=== PATIENT | female | born 1980 | race Caucasian/White ===

== ENCOUNTER 2023-08-29 18:00 | Outpatient (REF) | payer OTHER, SELFPAY ==
--- NOTE | ~2023-08-29 | MR_ITS ---
EXAMINATION: MR LUMBAR SPINE WITHOUT CONTRAST CLINICAL INFORMATION: Low back pain. COMPARISON: None available. TECHNIQUE: MRI of the lumbar spine was obtained using routine sequences without contrast. FINDINGS: Mild retrolisthesis at L4-L5 and L5-S1. No abnormal bone marrow signal. The vertebral body heights are preserved. Disc desiccation at L4-L5 and L5-S1 without significant disc height loss. Multilevel endplate osteophytosis. The visualized spinal cord is normal in caliber. No abnormal cord signal. The conus medullaris terminates at L1-L2. T12-L1: No significant spinal canal or neural foraminal narrowing. L1-L2: No significant spinal canal or neural foraminal narrowing. L2-L3: No significant spinal canal or neural foraminal narrowing. L3-L4: No significant spinal canal or neural foraminal narrowing. L4-L5: Tiny disc bulge with superimposed annular fissure. No significant spinal canal or neural foraminal narrowing. L5-S1: Central disc protrusion with superimposed annular fissure. No significant spinal canal or neural foraminal narrowing. The paravertebral soft tissues are unremarkable. MR/MR lumbar spine wo con IMPRESSION: Mild degenerative disc disease at L4-L5 and L5-S1 with superimposed annular fissures at these levels. No significant spinal canal or neural foraminal narrowing.
== END 2023-08-29 18:01 | disposition home or self-care (01) ==
LOC: HO.MRI 18:00
PROVIDERS: PCP Nurse Practitioner; Visit Provider Family Medicine Sports Medicine
DX: M54.50 Low back pain, unspecified (principal)
CPT/HCPCS: 72148

== ENCOUNTER 2023-11-28 13:38 | Outpatient (AMB) | payer OTHER, SELFPAY ==
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
[2023-11-28 14:07] VITALS: BP 118/74; PULSE 78; RESP 16; O2SAT 96; BMI 32.0
== END 2023-11-28 15:19 | disposition home or self-care (01) ==
PROVIDERS: PCP Nurse Practitioner; Visit Provider Anesthesiology
DX: M51.36 Other intervertebral disc degeneration, lumbar region (principal); G89.4 Chronic pain syndrome; M79.18 Myalgia, other site
CPT/HCPCS: 99203

== ENCOUNTER → 2023-11-28 13:38 | Outpatient (BNVA) | payer OTHER, SELFPAY | PROVIDERS: PCP Nurse Practitioner; Visit Provider Anesthesiology | DX: M51.36 Other intervertebral disc degeneration, lumbar region (principal); G89.4 Chronic pain syndrome; M79.18 Myalgia, other site | CPT/HCPCS: 99202 ==

== ENCOUNTER 2024-02-04 13:01 | Outpatient (AMB) | payer OTHER, SELFPAY ==
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
[2024-02-04 13:11] VITALS: BMI 29.7
== END 2024-02-04 13:58 | disposition home or self-care (01) ==
PROVIDERS: PCP Nurse Practitioner; Visit Provider Orthopaedic Surgery
DX: M67.441 Ganglion, right hand (principal); G89.4 Chronic pain syndrome
CPT/HCPCS: 20612; 99203

== ENCOUNTER → 2024-02-04 13:01 | Outpatient (BNVA) | payer OTHER, SELFPAY | PROVIDERS: PCP Nurse Practitioner; Visit Provider Orthopaedic Surgery | DX: M67.441 Ganglion, right hand (principal); G89.4 Chronic pain syndrome | CPT/HCPCS: 20612; 99202 ==

== ENCOUNTER 2024-02-10 13:23 | Outpatient (AMB) | payer OTHER, SELFPAY ==
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
[2024-02-10 13:30] VITALS: BP 122/86; PULSE 91; RESP 16; O2SAT 99; BMI 30.6
== END 2024-02-10 13:51 | disposition home or self-care (01) ==
PROVIDERS: PCP Nurse Practitioner; Visit Provider Anesthesiology
DX: G89.4 Chronic pain syndrome (principal); M51.36 Other intervertebral disc degeneration, lumbar region; M79.18 Myalgia, other site; M47.816 Spondylosis without myelopathy or radiculopathy, lumbar region
CPT/HCPCS: 99214

== ENCOUNTER → 2024-02-10 13:23 | Outpatient (BNVA) | payer OTHER, SELFPAY | PROVIDERS: PCP Nurse Practitioner; Visit Provider Anesthesiology | DX: G89.4 Chronic pain syndrome (principal); M51.36 Other intervertebral disc degeneration, lumbar region; M79.18 Myalgia, other site; M47.816 Spondylosis without myelopathy or radiculopathy, lumbar region | CPT/HCPCS: 99212 ==

== ENCOUNTER 2024-05-15 13:08 | Day surgery (SDC) | payer OTHER, SELFPAY ==
--- NOTE | 2024-05-13 13:13 | HO.ANESPROP2 ---
Documented by User: Enedina Strong NP 05/13/24 13:13 HPI - Anesthesia Eval Consult details Narrative: 43yo F for L1,L2,L3,L4 Diagnostic Medial Branch Block PMFSH Active Problems Active Problems: All Active Problems Spondylosis of lumbar region without myelopathy or radiculopathy (Acute) Retinacular ganglion, volar (VRG) (Acute) Myofascial pain syndrome (Acute) Chronic pain syndrome (Acute) Disc degeneration, lumbar (Acute) Past Medical History Medical History Anxiety ADHD Elevated cholesterol Surgical History Surgical History Hx of breast augmentation History of nasal surgery Social History Social History Alcohol intake: current Alcohol intake frequency: holidays/special occasions only Patient Tobacco Use Status: Never used Tobacco Advance Directives: No Advance Directives Information Provided: Yes service: No Current occupational status: employed Current occupation: [employer] / [employer] Meds Allergies Allergy/AdvReac Type Severity Reaction Status Date / Time Cephalosporins Allergy Unknown Verified 05/15/24 13:45 Home Medications ?Medication ?Instructions ?Recorded ?Confirmed ?Last Taken ?Type citalopram 30 mg capsule 30 mg PO DAILY 11/28/23 05/15/24 Unknown History atorvastatin 20 mg tablet 20 mg PO DAILY 05/15/24 05/15/24 Unknown History lisdexamfetamine 50 mg capsule 50 mg PO DAILY 05/15/24 05/15/24 Unknown History Assessment and Plan Assessment Anesthesia Assessment: Chart Reviewed Documented by User: Lupe Silva MD 05/15/24 13:59 PMFSH Past Medical History Medical History Anxiety ADHD Elevated cholesterol Surgical History Surgical History Hx of breast augmentation History of nasal surgery History of Problems with Anesthesia: No Social History Social History Alcohol intake: current Alcohol intake frequency: holidays/special occasions only Patient Tobacco Use Status: Never used Tobacco Advance Directives: No Advance Directives Information Provided: Yes service: No Current occupational status: employed Current occupation: [employer] / [employer] Meds Allergies Allergy/AdvReac Type Severity Reaction Status Date / Time Cephalosporins Allergy Unknown Verified 05/15/24 13:45 Home Medications ?Medication ?Instructions ?Recorded ?Confirmed ?Last Taken ?Type citalopram 30 mg capsule 30 mg PO DAILY 11/28/23 05/15/24 Unknown History atorvastatin 20 mg tablet 20 mg PO DAILY 05/15/24 05/15/24 Unknown History lisdexamfetamine 50 mg capsule 50 mg PO DAILY 05/15/24 05/15/24 Unknown History Exam Airway Mallampati Class: II TM Dist: >3cm Neck ROM: Full Loose/Missing/Broken Teeth: No Heart: RRR Lungs: CTA Assessment and Plan Assessment Anesthesia Assessment: Anesthesia Plan Discussed Final Anesthetic Review History of Problems with Anesthesia: No NPO: Yes ASA Class: II Final Preanesthetic Review: Meds/Allgs Chart Reviewed, Consent Obtained/Reviewed and Anes Risks/Benef Reviewed Patient Risk: Low Procedure Risk: Low Anesthetic Plan Anesthetic Plan: MAC: Disposition: Standard PACU
--- NOTE | 2024-05-15 13:36 | MHC.SHP ---
Pre-Procedural Eval Section A - 24 Hr Update-Section A only Date of Service: 05/15/24 The patient is an INPATIENT: No Changes since office visit: Yes Patient answered all questions The patient has been examined within 24 hours of the surgical procedure. The History & Physical has been completed within 30 days and I have reviewed it.: No Section B - Complete if H&P > 30 days Chief Complaint: Spondylosis without myelopathy or radiculopathy, Details of Present Illness: As above Relevant Family History (Specify if Yes): No Relevant Social History: None Present Medications: see Short Stay Collaborative assessment Medical History: No relevant PMH History of Previous Operations: No relevant previous surgery Allergies: Allergies Allergy/AdvReac Type Severity Reaction Status Date / Time Cephalosporins Allergy Unknown Verified 02/10/24 13:29 Review of Systems Sugical H&P ROS: Negative: Constitution, Cardiovascular, Respiratory, Neurological, Psychiatric, Hem-Onc, Allergic/Immunologic, Gastrointestinal, Genitourinary, Musculoskeletal, Integumentary, Endocrine and Eyes/Ears/Nose/Throat Exam Surgical H&P Exam: Normal: HEENT, Normal: Heart, Normal: Lungs, Normal: Extremities, Normal: Abdomen, Normal: Skin and Normal: Neurological Plan Diagnosis/Plan: Unchanged I have reviewed the history and physical and performed a pertinent physical examination on my patient. No changes have occurred unless specified. Time Spent With Patient Time: Total time managing care of this patient today ____ minutes.
[2024-05-15 13:46] VITALS: BMI 30.1
[2024-05-15 13:54] VITALS: BP 124/73; PULSE 63; RESP 15; TEMP 36.7; O2SAT 98
[2024-05-15 13:59] LABS: UPreg QC Valid YES; Urine Pregnancy NEGATIVE (NEGATIVE)
[2024-05-15] MEDS: Lactated Ringers 1,000 ML 100 ML IVCONT (13:59)
[2024-05-15 14:35] VITALS: BP 106/65; PULSE 60; RESP 12; TEMP 36.1; O2SAT 97
--- NOTE | 2024-05-15 14:41 | P.BOP_ITS ---
Brief Operative Note Date of Service: 05/15/24 Pre-op diagnosis: Spondylosis lumbar spine without myelopathy or radiculopathy. Post-op diagnosis: same Procedure: L1-L2 L3-L4 left-sided medial branch block diagnostic. Implants: None Surgeon: Antelmo Mazariegos MD Was an Wedger And Gluer used for this Procedure?: No Estimated blood loss (mL): 0 Condition: stable Disposition: PACU
--- NOTE | 2024-05-15 14:43 | P.OP_ITS ---
Operative Note Operative Note Date of Service: 05/15/24 Narrative: Diagnostic medial branch left side L1-L2 L3 and L4. ?Informed consent was explained to the patient. All questions were explained and? answered.? The patient was taken inside the operating room where she was p ositioned prone on the operating table. ASA monitors were applied and patient was minimally sedated. The lower back of the patient in the projection of the lumbar vertebra was palpated with fluoroscopy guidance. Patient reported most painful area on palpation to be between L2 and L3 vertebra. The decision was made perform left- sided L1-L2 L3 and L4 medial branch block. Time-out was performed delineating correct site, side, the nature of the procedure, patient's allergy, . All operating room staff was participating in OR time-out procedure. ? ? The lower back was prepped with ChloraPrep and draped with sterile towels.? C- arm was brought over the operating field and sq picture of L1-L2 L3 and L4 vertebra were delineated on the screen.? Point of interest were delineated as confluence of superior articular process of on the left with corresponding transfer processes on the left.? The projection of the point of interest to the skin were injected with the small amount of local anesthetic lidocaine 2% mixed with ropivacaine 0.5% 1-1 approcimately 1 cc.? After that 22 gauge 3.5 inch spinal needle was driven sequentially to the points of interest in tunnel vision fashion. After needles gently contacted the bone at the point of interests the needle was injected with small amount of the contrast.? The injection of the contrast did not demonstrate any intravascular or intrathecal spread of the contrast.? After that injection of the? ropivacaine 0.5%-1cc was performed at each needle location.??after that the needles were removed and Bandaids were applied. ? Upon completion of the injections?the needle was? removed and sterile Band-Aids were applied.? The patient tolerated the procedure well. She was awakened and taken to recovery room.
[2024-05-15 14:50] VITALS: BP 106/67; PULSE 59; RESP 14; O2SAT 97
[2024-05-15 15:05] VITALS: BP 108/72; PULSE 61; RESP 16; TEMP 36.6; O2SAT 99
== END 2024-05-15 15:40 | disposition home or self-care (01) ==
PROVIDERS: Nurse Practitioner; Absent Provider Family Medicine Sports Medicine; Visit Provider Anesthesiology
PROC: (CPT 64493; principal; 2024-05-15 14:40)
DX: M47.816 Spondylosis without myelopathy or radiculopathy, lumbar region (principal); G89.4 Chronic pain syndrome; M51.369 Other intervertebral disc degeneration, lumbar region without mention of lumbar back pain or lower extremity pain; M79.18 Myalgia, other site
CPT/HCPCS: 64493; 64494; 81025; J2003; J2250; J2704; J2795; J3010; Q9967

== ENCOUNTER → 2024-05-15 13:08 | Outpatient (BNV) | payer OTHER, SELFPAY | PROVIDERS: Absent Provider Family Medicine Sports Medicine; Visit Provider Anesthesiology | DX: M47.816 Spondylosis without myelopathy or radiculopathy, lumbar region (principal) | CPT/HCPCS: 64493; 64494 ==

== ENCOUNTER 2024-05-18 12:00 | Outpatient (AMB) | payer OTHER, SELFPAY ==
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
[2024-05-18 12:15] VITALS: BP 144/82; PULSE 82; RESP 16; O2SAT 98
== END 2024-05-18 12:31 | disposition home or self-care (01) ==
PROVIDERS: Visit Provider Anesthesiology
DX: M51.369 Other intervertebral disc degeneration, lumbar region without mention of lumbar back pain or lower extremity pain (principal); G89.4 Chronic pain syndrome; M79.18 Myalgia, other site; M47.816 Spondylosis without myelopathy or radiculopathy, lumbar region
CPT/HCPCS: 99213

== ENCOUNTER → 2024-05-18 12:00 | Outpatient (BNVA) | payer OTHER, SELFPAY | PROVIDERS: Visit Provider Anesthesiology | DX: M51.369 Other intervertebral disc degeneration, lumbar region without mention of lumbar back pain or lower extremity pain (principal); G89.4 Chronic pain syndrome; M79.18 Myalgia, other site; M47.816 Spondylosis without myelopathy or radiculopathy, lumbar region | CPT/HCPCS: 99212 ==

== ENCOUNTER 2025-04-08 10:05 | Outpatient (AMB) | payer OTHER, SELFPAY ==
[2025-04-08 10:35] VITALS: BP 133/77; PULSE 89; RESP 18; O2SAT 99
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
== END 2025-04-08 11:03 | disposition home or self-care (01) ==
LOC: HO.PMC 10:06
PROVIDERS: Visit Provider Anesthesiology
DX: M51.369 Other intervertebral disc degeneration, lumbar region without mention of lumbar back pain or lower extremity pain (principal); G89.4 Chronic pain syndrome; M79.18 Myalgia, other site; M47.816 Spondylosis without myelopathy or radiculopathy, lumbar region
CPT/HCPCS: 99214

== ENCOUNTER → 2025-04-08 10:05 | Outpatient (BNVA) | payer OTHER, SELFPAY | PROVIDERS: Visit Provider Anesthesiology | DX: T50.995A Adverse effect of other drugs, medicaments and biological substances, initial encounter (principal); Y92.531 Health care provider office as the place of occurrence of the external cause; M51.369 Other intervertebral disc degeneration, lumbar region without mention of lumbar back pain or lower extremity pain; G89.4 Chronic pain syndrome; M79.18 Myalgia, other site; M47.816 Spondylosis without myelopathy or radiculopathy, lumbar region | CPT/HCPCS: 99212 ==

== ENCOUNTER 2025-07-06 06:18 | Outpatient (REF) | payer OTHER, SELFPAY ==
--- NOTE | ~2025-07-06 | FL_ITS ---
EXAMINATION: FL GUIDANCE ONLY HISTORY: M47.816 - Spondylosis without myelopathy or radiculopathy, lumbar region COMPARISON: None available. TECHNIQUE: Fluoroscopy time: 1 minute, 21 seconds. Cumulative Dose: 17.40 mGy. DAP: 3714.40 mGycm2 Images: 4. FINDINGS: Fluoroscopic spot films of the spine demonstrate needles adjacent to the left L2, L3, L4, and L5 pedicles. FL/FL guidance in treatment room IMPRESSION: Fluoroscopy during procedure. Please see procedure report for additional information. Electronically signed by: Roland Lambert MD 07/06/2025 01:00 PM JONATHAN
== END 2025-07-06 06:19 | disposition home or self-care (01) ==
LOC: CF 06:18
PROVIDERS: Visit Provider Anesthesiology
DX: M47.816 Spondylosis without myelopathy or radiculopathy, lumbar region (principal)
CPT/HCPCS: 64635; 64636; J2003; J2795; J3301

== ENCOUNTER 2025-07-06 09:15 | Outpatient (AMB) | payer OTHER, SELFPAY ==
--- NOTE | 2025-07-06 09:19 | A.OFFVIS_ITS ---
Vital Signs 07/06/25 09:22 07/06/25 10:20 Height 5 ft 1 in Weight 153 lb BMI 28.9 BP 114/75 121/86 Blood Pressure Location Lt brachial Lt brachial Position Sitting Standing Respiration 16 16 Pulse 79 80 Pulse Source Pulse Oximeter Pulse Oximeter Pulse Oximetry (%) 100 97 Oxygen Delivery Method Room Air Room Air Intake Visit Reasons: Left L1-L2-L3-L4 MB RFA/ oral sedation *Bethadine* Allergies Cephalosporins Allergy (Verified 04/08/25 10:37) Unknown [facility] Medical History Anxiety ADHD Elevated cholesterol Surgical History Hx of breast augmentation History of nasal surgery Social History Alcohol intake: current Alcohol intake frequency: holidays/special occasions only Patient Tobacco Use Status: Never used Tobacco service: No Current occupational status: employed Current occupation: [employer] / [employer] Physical Exam Vital Signs: Last Vital Signs Pulse 80 07/06/25 10:20 Resp 16 07/06/25 10:20 BP 121/86 07/06/25 10:20 Pulse Ox 97 07/06/25 10:20 Oxygen Delivery Method Room Air 07/06/25 10:20 BMI result Body Mass Index 28.9 Assessment & Plan Assessment & Plan (1) Spondylosis of lumbar region without myelopathy or radiculopathy: Code(s): M47.816 - Spondylosis without myelopathy or radiculopathy, lumbar region Category: Medical Plan Radiofrequency ablation bilateral L3- L4- DRL5 medial branches. Preoperative diagnosis: Spondylosys lumbar without myelopathy or radiculopathy. Postoperative diagnosis: the same. Informed consent was explained to the patient. All questions were explained and answered.? The patient was taken inside of the operating room where she was positioned prone on the operating table.? Time-out was performed delineating patient's name and date of , correct site, side, the nature of the procedure, patient's allergy..? All operating room staff was participating in OR time-out procedure.? I was able to maintain the verbal contact with the patient throughout the procedure. Her lower back was prepped with ChloraPrep and draped with sterile towels.? C- arm was brought over the operating field and sq picture of L2, L3, L4-, L5 5 vertebra were delineated on the screen. Points of interest were delineated as connection of superior articular process of L2, L3, L4, L5, on the left with corresponding transverse processes on the left ..? The projection of the point of interest to the skin were injected with the small amount of local anesthetic lidocaine 2% 1-1.5 cc.? And after that 18 gauge 100 mm radiofrequency cannulas were driven to the point of interest in tunnel vision fashion. After needles gently contacted the bone at the point of interests the stylets were removed from the needles and electrodes were inserted into the needles.? Electrodes were connected to the radiofrequency machine and testing was performed for the patient's motor function.? There were no pathological motor response indicating stimulation of somatic nerves.? After that electrodes were removed and each needle was injected with small amount of mixture of lidocaine 2% one-to-one 1- 1.5 cc mixed with trace amount of Kenalog.? Upon completion of the injections the electrodes were reinserted and energy of 89 degree centigrade for 90 seconds was applied to each needle .??Upon completion of the injections needles were removed and sterile dressings were applied patient was taken outside of the operating room to recovery room. Orders: Orders [place] guidance in treatment room Today M47.816 - Spondylosis without myelopathy or radiculopathy, lumbar region Medications: New hydromorphone (Dilaudid) Partial Fill upon patient request. no driving while taking this medication. 2 mg PO TID 9 tabs 0RF 3 days oxycodone take 30 minutes prior to arrival for procedure 10 mg PO ONCE PRN 1 tab 0RF pain diazepam (Valium) please take 30minutes prior to arrival for procedure 5 mg PO ONCE PRN 1 tab 0RF sleep Coding Level of Care Code Procedure Only Diagnoses Spondylosis of lumbar region without myelopathy or radiculopathy M47.816
[2025-07-06 09:22] VITALS: BP 114/75; PULSE 79; RESP 16; O2SAT 100; BMI 28.9
[2025-07-06 10:20] VITALS: BP 121/86; PULSE 80; RESP 16; O2SAT 97
== END 2025-07-06 10:25 | disposition home or self-care (01) ==
LOC: HO.PMCPRC 09:15
PROVIDERS: PCP Registered Nurse; Visit Provider Anesthesiology
DX: M47.816 Spondylosis without myelopathy or radiculopathy, lumbar region (principal)
CPT/HCPCS: 64635; 64636